=== PATIENT | male | born 1940 | race Two or more races ===

== ENCOUNTER 2019-06-27 09:37 | Outpatient (CLI) | payer OTHER ==
[~2019-06-27] VITALS: Ht 167.6 cm; Wt 86.2 kg
[2019-06-27] MEDS ORDERED: EAR WAX REMOVER15 ML OT (11:18)
== END 2019-06-27 12:43 | disposition home or self-care (01) ==
LOC: OFIC 805 09:37
DX: J31.0 Chronic rhinitis (principal); R22.1 Localized swelling, mass and lump, neck; C07 Malignant neoplasm of parotid gland; H91.8X3 Other specified hearing loss, bilateral